=== PATIENT | female | born 1965 | race African-American/Black ===

== ENCOUNTER 2017-07-14 11:02 | Emergency (ER) | payer MEDICAID, SELFPAY ==
[~2017-07-14] VITALS: Ht 165.1 cm; Wt 100.0 kg
[2017-07-14 16:50] VITALS: BP 112/58
[2017-07-14] MEDS ORDERED: KETOROLAC 30MG/ML VIAL IM ONE (18:00)
[2017-07-14] MEDS ORDERED: NAPROXEN 500MG TABLET PO ONE (18:45)
== END 2017-07-14 19:16 | disposition home or self-care (01) ==
LOC: ER 11:02
DX: M25.512 Pain in left shoulder (principal); R20.9 Unspecified disturbances of skin sensation; M54.12 Radiculopathy, cervical region; M54.16 Radiculopathy, lumbar region; Z88.0 Allergy status to penicillin
CPT/HCPCS: 99283

== ENCOUNTER 2022-12-09 11:27 | Emergency (ER) | payer MEDICAID ==
[~2022-12-09] VITALS: Ht 165.1 cm; Wt 81.0 kg
[2022-12-09] MEDS ORDERED: IBUPROFEN 600MG TABLET PO ONE (20:00)
[2022-12-09 20:10] VITALS: BP 158/96
[2022-12-09] MEDS ORDERED: NAPR500T7 MT (20:28)
== END 2022-12-09 20:54 | disposition home or self-care (01) ==
LOC: ER 11:27
DX: S89.81XA Other specified injuries of right lower leg, initial encounter (principal); Z88.0 Allergy status to penicillin; Y08.89XA Assault by other specified means, initial encounter; Y93.F9 Activity, other caregiving; Y92.89 Other specified places as the place of occurrence of the external cause; Y99.8 Other external cause status
CPT/HCPCS: 73590; 99283